=== PATIENT | female | born 1990 | race Caucasian/White ===

== ENCOUNTER 2017-03-03 03:30 | Emergency (ER) | payer OTHER ==
[~2017-03-03 03:30] MED LIST: DICL50TA3 PO; Z.0.BCPILL PO
[2017-03-03 03:32] VITALS: BP 134/82; PULSE 91; RESP 16; TEMP 97.9; O2SAT 97
[2017-03-03] MEDS ORDERED: BACT800T5 PO (03:37)
[2017-03-03] MEDS ORDERED: CEPH500C PO (03:37)
[2017-03-03] MEDS ORDERED: ONDA4TAB7 SL (03:37)
[2017-03-03] MEDS ORDERED: SODIUM CHLOR 0.9% 1000 ML INJ 1,000 ML IV ONE (04:15)
[2017-03-03] MEDS ORDERED: ONDANSETRON HCL 4 MG/2 ML VIAL IV ONE (04:15)
--- NOTE | 2017-03-03 04:36 | PD ---
HPI Chief Complaint: GI Complaint Time Seen by Provider: 04:12 Travel History International Travel<30 days: No Contact w/Intl Traveler<30days: No Traveled to known affect area: No History of Present Illness HPI The patient is a 26 year old female who presents to the [facility] emergency department with a history of urinary frequency and urgency that began approximately 2 weeks ago. She reports that on Thursday morning she began to have a pressure sensation in the right side of her back. The patient reports that on Thursday she went to the emergency department at [facility] and was diagnosed with a urinary tract infection. She had a CT scan of the abdomen and pelvis done at that time that showed no evidence of kidney stone. She reports that she was told that if the pain continued she should come back to the emergency department. On Thursday she continued to have pain, therefore she went back to [facility] again. The patient reports that initially they told her she was by urine test. She reports that after that a quantitative beta hCG was reportedly negative. They did do a pelvic ultrasound which she was told was unremarkable. The patient reports that she comes in today to this emergency department related to nausea and vomiting that began at 10:30 PM. The patient reports that since February 23 she has been on cephalexin and Bactrim for her urinary tract infection. She reports that she was given Lortab for pain, however this made her dizzy, therefore she discontinued it. She was given ondansetron for nausea. The patient reports that she's had multiple episodes of vomiting since the onset. She reports that she was not able to take the ondansetron as she was trying to swallow it and it was chalky. She denies having any diarrhea. She reports that she has been moving her bowels regularly. She denies having any prior history of kidney stones, however she has had problems with urinary tract infections in the past. On review of systems, the patient denies any known recent fevers, cough, congestion, neck pain, chest pain, shortness of breath, abdominal pain, or neurologic symptoms. The patient incidentally also reports that multiple close contacts at work have been experiencing vomiting and diarrhea. L [facility] Past Medical History Narrative Medical The patient's past medical history is significant for recurrent syncopal events , urinary tract infections Blood Disorders: No Cancer: No Cardiovascular Problems: No Chemotherapy: No Endocrine: No Genitourinary: No Immune Disorder: No Musculoskeletal: No Neurologic: No Psychiatric: No Reproductive: No Respiratory: No Immunizations Current: Yes Radiation Therapy: No Seizures: Yes (possibly) ?: Unknown LMP: February 24, 2017 : 0 Past Surgical History Narrative Surgical The patient's past surgical history is reportedly none. Other Surgery: No Social History Alcohol Use: Yes (weekly) Tobacco Use: No Substance Use: Yes (MARIJUANA) Allergies-Medications (Allergen,Severity, Reaction): Coded Allergies: No Known Allergies (Unverified , 03/03/17) Reported Meds & Prescriptions Reported Meds & Active Scripts Active Reported Bactrim DS (Sulfamethoxazole-Trimethoprim) 800-160 Mg Tab 1 Tab PO BID Cephalexin 500 Mg Cap 500 Mg PO Q6H Ondansetron Odt 4 Mg Tab 4 Mg SL Q12HR PRN Review of Systems Except as stated in HPI: all other systems reviewed are Neg General / Constitutional: No: Fever Eyes: No: Visual changes HENT: No: Headaches Cardiovascular: No: Chest Pain or Discomfort Respiratory: No: Shortness of Breath Gastrointestinal: Positive: Nausea, Vomiting, No: Abdominal Pain Genitourinary: Positive: Urgency, Frequency, Dysuria, Flank Pain (right) Musculoskeletal: No: Pain Skin: No Rash Neurologic: No: Weakness Psychiatric: No: Depression Endocrine: No: Polydipsia Hematologic/Lymphatic: No: Easy Bruising Physical Exam Narrative General: The patient is a well-developed well-nourished female in no acute distress. Head and Neck exam: Head is normocephalic atraumatic. Eyes: EOMI, pupils are equal round and reactive to light. Nose: Midline septum with pink mucous membranes Mouth: Dentition unremarkable. Moist mucus membranes. Posterior oropharynx is not erythematous. No tonsillar hypertrophy. Uvula midline. Airway patent. Neck: No palpable lymphadenopathy. No nuchal rigidity. No thyromegaly. Cardiovascular: Regular rate and rhythm without murmurs, gallops, or rubs. Lungs: Clear to auscultation bilaterally. No wheezes, rhonchi, or rales. Abdomen: Soft, without tenderness to palpation in all 4 quadrants of the abdomen. No guarding, rebound, or rigidity. Normal bowel sounds are audible. No tenderness on palpation of McBurney's point. Extremities: No clubbing, cyanosis, or edema. 2+ pulses in all 4 extremities. No calf tenderness on palpation. Back: No spinous process tenderness to palpation. Bilateral CVA tenderness on palpation is reported. Neurologic Exam: Grossly nonfocal. Skin Exam: No rash noted. Intact skin that is warm and dry. Data Data Last Documented VS Vital Signs Date Time Temp Pulse Resp B/P (MAP) Pulse Ox O2 Delivery O2 Flow Rate FiO2 03/03/17 04:41 16 100 Room Air 03/03/17 03:32 97.9 91 Orders Orders Complete Blood Count With Diff (03/03/17 04:15) Comprehensive Metabolic Panel (03/03/17 04:15) Lipase (03/03/17 04:15) Urinalysis - C+S If Indicated (03/03/17 04:15) Iv Access Insert/Monitor (03/03/17 04:15) Ecg Monitoring (03/03/17 04:15) Oximetry (03/03/17 04:15) Ed Urine Pregnancytest Poc (03/03/17 04:15) Sodium Chlor 0.9% 1000 Ml Inj (Ns 1000 M (03/03/17 04:15) Ondansetron Inj (Zofran Inj) (03/03/17 04:15) Urine Culture (03/03/17 04:35) Ceftriaxone Inj (Rocephin Inj) (03/03/17 05:30) Ct Abd/Pel W/O Iv Contrast (03/03/17 05:23) Labs Laboratory Tests Test 03/03/17 04:30 03/03/17 04:35 White Blood Count 4.7 TH/MM3 Red Blood Count 3.67 MIL/MM3 Hemoglobin 11.4 GM/DL Hematocrit 33.4 % Mean Corpuscular Volume 90.8 FL Mean Corpuscular Hemoglobin 31.0 PG Mean Corpuscular Hemoglobin Concent 34.1 % Red Cell Distribution Width 12.6 % Platelet Count 221 TH/MM3 Mean Platelet Volume 7.9 FL Neutrophils (%) (Auto) 63.2 % Lymphocytes (%) (Auto) 19.5 % Monocytes (%) (Auto) 14.2 % Eosinophils (%) (Auto) 2.5 % Basophils (%) (Auto) 0.6 % Neutrophils # (Auto) 3.0 TH/MM3 Lymphocytes # (Auto) 0.9 TH/MM3 Monocytes # (Auto) 0.7 TH/MM3 Eosinophils # (Auto) 0.1 TH/MM3 Basophils # (Auto) 0.0 TH/MM3 CBC Comment DIFF FINAL Differential Comment Blood Urea Nitrogen 13 MG/DL Creatinine 0.96 MG/DL Random Glucose 103 MG/DL Total Protein 8.6 GM/DL Albumin 4.4 GM/DL Calcium Level 9.2 MG/DL Alkaline Phosphatase 71 U/L Aspartate Amino Transf (AST/SGOT) 34 U/L Alanine Aminotransferase (ALT/SGPT) 24 U/L Total Bilirubin 0.7 MG/DL Sodium Level 135 MEQ/L Potassium Level 4.4 MEQ/L Chloride Level 103 MEQ/L Carbon Dioxide Level 22.7 MEQ/L Anion Gap 9 MEQ/L Estimat Glomerular Filtration Rate 70 ML/MIN Lipase 131 U/L Urine Color YELLOW Urine Turbidity CLOUDY Urine pH 6.0 Urine Specific [place] 1.032 Urine Protein 30 mg/dL Urine Glucose (UA) NEG mg/dL Urine Ketones 10 mg/dL Urine Occult Blood SMALL Urine Nitrite NEG Urine Bilirubin NEG Urine Urobilinogen LESS THAN 2.0 MG/DL Urine Leukocyte Esterase LARGE Urine RBC 4 /hpf Urine WBC 13 /hpf Urine Squamous Epithelial Cells 12 /hpf Urine Uric Acid Crystals MANY /hpf Urine Bacteria MANY /hpf Urine Hyaline Casts 2 /lpf Urine Mucus MOD /lpf Microscopic Urinalysis Comment CULTURE INDICATED MDM Medical Decision Making Medical Screen Exam Complete: Yes Emergency Medical Condition: Yes Medical Record Reviewed: Yes Differential Diagnosis Kidney infection, versus kidney stone, versus musculoskeletal strain Narrative Course During the course of the patients emergency department visit, the patients history, examination, and differential diagnosis were reviewed with the patient. The patient had IV access obtained and blood work sent for analysis. The patient was placed on a baseball glove shaper with oximetry and blood pressure monitoring. The patient was initially provided normal saline 1 L IV fluid bolus, Zofran 4 mg IV. The patient had no further episodes of vomiting in the emergency department. The patients laboratory studies were reviewed and remarkable for white count 4.7 , hemoglobin 11.4, platelets 221 with 14.2 monocytes, CMP is remarkable for sodium of 135, GFR 70, total protein 8.6, urinalysis shows large leukocyte esterase, 4 rbc's, 13 wbc's, many uric acid crystals, many bacteria. Culture indicated. Radiology studies were reviewed and remarkable for a CT scan of the abdomen and pelvis shows mild edema, Stranding around the pancreas and early mild acute pancreatitis would be possible the proper clinical setting. Otherwise negative CT scan of the abdomen and pelvis. No stone or obstructive uropathy. Normal appendix. As the patient has a normal lipase I suspect that the stranding may be related to inflammation near the pancreas possibly related to a kidney infection. The patient was given an initial dose of Rocephin 1 g IV. The patient was instructed to continue cephalexin and take Zofran as needed for nausea. She is instructed to follow-up with her primary care physician for reexamination for improvement in the next 1-2 days. She is instructed to report back immediately if she is vomiting can keep down the antibiotic. The patient is resting comfortably and feels better, is alert and in no distress. The patients results and examination findings were discussed with the patient. The repeat examination is unremarkable and benign. The history, exam, diagnostic testing, and current condition do not suggest any significant pathology to warrant further testing, continued ED treatment, admission, or surgical evaluation at this point. The vital signs have been stable. The patient does not have uncontrollable pain, intractable vomiting, or other significant symptoms. The patient's condition is stable and appropriate for discharge. The patient will pursue further outpatient evaluation with a primary care physician or other designated or consulting physician as indicated in the discharge instructions. The patient expressed understanding and was agreeable with this plan. Diagnosis Primary Impression: Kidney infection Referrals: Primary Care Physician 2 days Patient Instructions: General Instructions, Kidney Infection (ED) Additional Instructions: The patient is instructed to continue on Keflex and Zofran oral dissolving tablet as needed for nausea. She is instructed to use an oral dissolving tablet underneath the tongue and let it dissolve to assist with nausea. The patient is instructed to push fluids and get plenty of rest. She is instructed to follow-up with her primary care physician for reexamination in the next 1-2 days for improvement. She is instructed report back if she is unable to tolerate her by mouth antibiotic. Med/Other Pt SpecificInfo: No Change to Meds Disposition: 01 DISCHARGE HOME Condition: Stable Jennifer Keller MD Mar 03, 2017 04:36
[2017-03-03 04:41] VITALS: RESP 16; O2SAT 100
[2017-03-03 04:50] LABS: BACTERIA, URINE MANY /hpf; BLOOD, URINE SMALL (NEG); COMMENT (UR) CULTURE INDICATED; CULTURE IF INDICATED CULTURE INDICATED; GLUCOSE,URINE NEG (NEG); HYALINE CAST, URINE 2 /lpf (RARE); KETONE, URINE 10 mg/dL (NEG); MUCUS URINE MOD /lpf (OCC); NITRITE,URINE NEG (NEG); SQUAMOUS EPITHELIAL CELL URINE 12 /hpf (0-5); URIC ACID CRYSTALS, URINE MANY /hpf; URINE COLOR YELLOW (YELLW/STRAW)
[2017-03-03 05:09] LABS: ALKALINE PHOSPHATASE 71 U/L (45-117); TOTAL BILIRUBIN ADULT 0.7 MG/DL (0.2-1.0)
[2017-03-03 05:16] LABS: ALT (GPT) 24 U/L (10-53); ANION GAP 9 MEQ/L (5-15); AST (GOT) 34 U/L (15-37); BASOPHIL % 0.6 % (0.0-2.0); BICARBONATE 22.7 MEQ/L (21.0-32.0); BLOOD UREA NITROGEN 13 MG/DL (7-18); CHLORIDE 103 MEQ/L (98-107); EOSINOPHIL # 0.1 TH/MM3 (0-0.4); EOSINOPHIL % 2.5 % (0.0-4.0); GLOMERULAR FILTRATION RATE 70 ML/MIN (>89); HEMATOCRIT 33.4 % (35.0-46.0); HEMO FLAGS DIFF FINAL; LYMPH % 19.5 % (9.0-44.0); LYMPHOCYTE # 0.9 TH/MM3 (1.0-4.8); MEAN CELL VOLUME 90.8 FL (80.0-100.0); MEAN CORPUSCULAR HGB CONC 34.1 % (32.0-36.0); MONO % 14.2 % (0.0-8.0); NEUT % 63.2 % (16.0-70.0); PLATELET COUNT 221 TH/MM3 (150-450); POTASSIUM 4.4 MEQ/L (3.5-5.1); RED BLOOD COUNT 3.67 MIL/MM3 (4.00-5.30); RED CELL DISTRIBUTION WIDTH 12.6 % (11.6-17.2); SODIUM (NA) 135 MEQ/L (136-145); WHITE BLOOD COUNT 4.7 TH/MM3 (4.0-11.0)
[2017-03-03] MEDS ORDERED: cefTRIAXone INJ 1,000 MG in SODIUM CHLORIDE 0.9% INJ 100 ML IV ONE (05:30)
--- NOTE | 2017-03-03 05:56 | RADRPT ---
EXAM DATE/TIME: 03/03/2017 05:28 [place] COMPARISON: No previous studies available for comparison. INDICATIONS : Right flank pain with nausea and vomiting. ORAL CONTRAST: No oral contrast ingested. RADIATION DOSE: 15.21 CTDIvol (mGy) MEDICAL HISTORY : None SURGICAL HISTORY : None. ENCOUNTER: Initial ACUITY: 1 day PAIN SCALE: 2/10 LOCATION: Right flank TECHNIQUE: Volumetric scanning of the abdomen and pelvis was performed. Using automated exposure control and ad justment of the mA and/or kV according to patient size, radiation dose was kept as low as reasonably achievable to obtain optimal diagnostic quality images. DICOM format image data is available electro nically for review and comparison. FINDINGS: LOWER LUNGS: The visualized lower lungs are clear. LIVER: Homogeneous density without lesion. There is no dilation of the biliary tree. No calcified gallston es. SPLEEN: Normal size without lesion. PANCREAS: Mild fat stranding in the upper abdomen and generally seems to be centered around the head and body o f the pancreas. No organized fluid. No ductal dilatation. KIDNEYS: Normal in size and shape. There is no mass, stone, or hydronephrosis. ADRENAL GLANDS: Within normal limits. VASCULAR: There is no aortic aneurysm. BOWEL/MESENTERY: The stomach, small bowel, and colon demonstrate no acute abnormality. There is no free intraperitone al air or fluid. Normal appendix. ABDOMINAL WALL: Within normal limits. RETROPERITONEUM: There is no lymphadenopathy. BLADDER: No wall thickening or mass. REPRODUCTIVE: Within normal limits. INGUINAL: There is no lymphadenopathy or hernia. MUSCULOSKELETAL: Within normal limits for patient age. CONCLUSION: 1. Mild edema/fat stranding around the pancreas and early/mild acute pancreatitis would be possible i n the proper clinical setting. 2. Otherwise negative CT of the abdomen and pelvis. No stone or obstructive uropathy. Normal appendix . Miguel Swan MD on March 03, 2017 at 5:51 Board Certified Radiologist. This report was verified electronically.
== END 2017-03-03 08:01 | disposition home or self-care (01) ==
LOC: NEPC 03:30
DX: N15.9 Renal tubulo-interstitial disease, unspecified (principal); B37.49 Other urogenital candidiasis; B96.89 Other specified bacterial agents as the cause of diseases classified elsewhere
CPT/HCPCS: 74176; 80053; 81001; 83690; 84703; 85025; 87086; 96361; 96374; 96375; 99285; J0696; J2405; J7030